=== PATIENT | female | born 1940 | race Caucasian/White ===

== ENCOUNTER 2018-10-22 13:06 | Outpatient (CLI) | payer MEDICARE, OTHER ==
--- NOTE | 2018-10-22 14:21 | MRI ---
EXAM: MRI Brain WO Con PROVIDED CLINICAL HISTORY: Dementia without behavioral disturbance. COMPARISON: None FINDINGS: There are patchy and confluent areas of increased FLAIR and T2-weighted signal intensity seen through out the periventricular and subcortical white matter which are nonspecific but likely reflective of moderate to severe chronic small vessel ischemic changes. There is no evidence of an acute infarction . Cerebral and cerebellar volume loss is present. The ventricular system is normal in size, shape, and position for the degree of sulcal atrophy. Appropriate flow voids are demonstrated at the base of the brain. Sycuan lenses are absent. The visualized paranasal sinuses and skull base have a normal appearance. IMPRESSION: 1. No acute intracranial abnormality is demonstrated. 2. Moderate to severe chronic small vessel ischemic changes. 3. Cerebral and cerebellar volume loss.
== END 2018-10-22 13:07 | disposition home or self-care (01) ==
LOC: SCSMRI 13:06
PROVIDERS: ATTEND Family Medicine
DX: F03.90 Unspecified dementia, unspecified severity, without behavioral disturbance, psychotic disturbance, mood disturbance, and anxiety (principal); I67.82 Cerebral ischemia
CPT/HCPCS: 70551

== ENCOUNTER 2020-08-12 09:21 | Outpatient (CLI) | payer MEDICARE, OTHER | END 2020-08-12 09:22 | disposition home or self-care (01) | LOC: SCSRAD 09:21 | PROVIDERS: ATTEND Family Medicine | DX: M79.605 Pain in left leg (principal); M17.12 Unilateral primary osteoarthritis, left knee ==